=== PATIENT | male | born 1995 | race Caucasian/White ===

== ENCOUNTER 2017-04-18 21:54 | Emergency (ER) | payer BC ==
[2017-04-18] MEDS ORDERED: ONDANSETRON 4 MG/2 ML VIAL ONE (22:05)
[2017-04-18] MEDS ORDERED: ONDANSETRON 4 MG/2 ML VIAL IVP ONE (22:05)
[2017-04-18] MEDS ORDERED: NS 1,000 ML IV ONE ×4 (22:05→23:14)
--- NOTE | 2017-04-18 22:09 | EDPHY ---
H & P HPI/ROS: HPI CHIEF COMPLAINT: Seizure HISTORY OF PRESENT ILLNESS: This patient is a 27-year-old male, presents emergency room by EMS after he had a witnessed seizure by his friends at a local residence. Friends state that he had a seizure that lasted 1 minutes generalized tonic-clonic. He was postictal when EMS arrived alert or x1. He ambulated out to the ambulance. Where he then vomited 1 time. And then proceeded to have another seizure lasting 45 seconds. He was given 5 mg IM Versed. Placed on a non-rebreather. And brought to the emergency room. Upon arrival to the emergency room he is lethargic, he is noted to be tachycardic, sedated from IM Versed. At this time I do not appreciate any seizure activity. It is reported of limited review of systems and history. Additionally reported by his friends that he has a history of skin cancer. But no known seizure disorder or other medical history at this time. No reported drugs or alcohol. Upon arrival to the emergency room the patient is lethargic. On a non- rebreather noted to be tachycardic. He is unable to participate in exam. No trauma reported. History review of systems limited due to patient's mental state. Past Medical History: Unknown Past Surgical History: Unknown Social History: Unknown Family History: Unknown ROS REVIEW OF SYSTEMS: Limited due to patient's mental state. Exam Constitutional lethargic, triage nursing summary reviewed, vital signs reviewed tachycardic Eyes normal conjunctivae and sclera, EOMI. 4 mm equal minimally reactive light pupils. HENT normal inspection, atraumatic, moist mucus membranes, no epistaxis, neck supple/ no meningismus, no raccoon eyes. Respiratory clear to auscultation bilaterally, normal breath sounds, no respiratory distress, no wheezing. Cardiovascular tachycardic, regular rhythm, no murmur, no edema, distal pulses normal. Gastrointestinal soft, non-tender, no rebound, no guarding, normal bowel sounds, no distension, no pulsatile mass. Genitourinary no CVA tenderness. Musculoskeletal no midline vertebral tenderness, full range of motion, no calf swelling, no tenderness of extremities, no meningismus, good pulses, neurovascularly intact. Skin pink, warm, & dry, no rash, skin atraumatic. Neurologic large it, no seizure activity cut rigid. Psychiatric normal mood/affect. Heme/Lymph/Immune no lymphadenopathy. Differential Diagnosis: Includes but is not limited to in a particular order acute seizure, unresponsiveness, intracranial bleed, electrolyte disturbance, acute FL, sepsis Medical Decision Making: Plan for this patient he is currently unresponsive on a non-rebreather after seizure and receiving IM Versed. Proceed with CT scan head without contrast rule out intracranial bleed. IV establishment blood draw , full fusing machine tender. Re-evaluation: CT scan of the head without contrast seizure The results of the study are this shows a right frontal lobe possible mass 3.5 x 3 cm hyperdense in origin. Also right buddhist region 1 cm additionally there is intraventricular blood right side.. The study was read by Dr. Wilcox I viewed the images myself on the PACS system. 2227: Patient is back from CT. No change in his clinical state. Still stone lethargic GCS of 3. He will need to be intubated. Airway protection. 2227: Additionally at this time I did consult Neurosurgery to evaluate his CT scan. Spoke with Dr. Piper. 2238: This patient was unresponsive GCS of 3. Required emergent intubation by myself. Reason for intubation airway protection given he is unresponsive. No evidence of seizure activity. Intubation procedure 2247PM: Mom and dad have arrived. They report to me that he has stage III melanoma. They report that he has not had any spread that they know of. I have updated him of his condition. They understand he is on a breathing machine. Intubated. And has lesions on his brain. This patient is currently getting chemotherapy medication and is followed by an oncologist at [facility]. 2300: Dr. Tay Piper: At bedside seen evaluated the patient. 2300: Spoke with agrees to admit this patient. 2301: This time this patient is hemodynamically stable heart rate is currently 112, blood pressure 97/54. He is intubated. He is not on sedation at this time. No evidence seizure activity at this time. 2316: Parents requesting to be transferred to [facility]. Will set this up. ED x-ray chest one view: Shows good position of endotracheal tube. I do not appreciate any otherwise abnormal acute cardiopulmonary disease. Endotracheal tube in good position. Good aeration of both lungs. Intubation procedure: This patient was emergently intubated by myself. Under direct laryngoscopy 7.5 ET tube was placed. Patient was medicated with RSI medications which include pre medication with 100 mcg IV fentanyl, 20 mg IV etomidate, 100 mg of succinylcholine. 1 attempt was made at endotracheal intubation. His endotracheal tube was in good position. This was confirmed with chest x-ray, color change on. Humidified air. Bilateral breath sounds with auscultation. Critical Care: Total Critical Care Time Spent Managing this Patient:65Minutes. This time was spent Exclusively with this patient. This Care was exclusive of procedures. The Organ System/life at risk was respiratory failure This Patient was in Critical Condition because respiratory failure due to multiple seizures 2327: At this time family is requesting transfer [facility]. Will arrange this. Dr. Tay Piper seen evaluated the patient. Had a lengthy discussion with family. Currently this time patient hemodynamically stable sedated and intubated. No further seizure activity in fact he started moving. Removing the extremities and bucking the vent. 2340: Spoke with at [facility] Dr. Jiménez with Neurosurgery he has accepted the patient to the neuro ICU. The patient be flown there by helicopter. Reason for helicopter flight is the patient is intubated sedated with hypoxic respiratory failure in critical condition. At risk for having further seizures. Family is agreed for transfer. Mom and dad updated at bedside. 1238AM: Update from [facility]. They are cleaning his ICU room. Is not available at this time. The requesting we hold the patient here until the room is fully cleaned and then can transfer patient by helicopter. Source: EMS Constitutional: Initial Vital Signs Heart Rate 133 H 04/18/17 21:55 Respiratory Rate 34 H 04/18/17 21:55 Blood Pressure 155/110 H 04/18/17 21:55 O2 Sat (%) 96 04/18/17 21:55 O2 Delivery Mode Ventilator O2 (L/minute) 15 Allergies/Adverse Reactions: No Known Allergies Allergy (Unverified 04/18/17 23:09) Home Medications: Medication Instructions Recorded Atezolizumab 04/18/17 Cobimetinib Fumarate 04/18/17 Vemurafenib 04/18/17 Medical Decision Making - Diagnostics Imaging Results: Imaging Impressions Chest X-Ray 04/18/17 22:05 Impression: Clear lungs. Negative portable chest. Head CT 04/18/17 22:05 Impression: 1. Two sites of intraparenchymal hemorrhage versus partially calcified masses in the right frontal and right temporal lobes. 2. Small focus of intraventricular hemorrhage in the anterior right 3rd ventricle at the foramen Monro. 3. High hematocrit versus sagittal sinus thrombosis. Findings discussed with Emergency Department physician, Alejo Talavera M.D., on April 18, 2017 at 2230. Chest X-Ray 04/18/17 22:32 Impression: 1. New well-positioned ET tube. 2. Clear lungs. No aspiration. - Data Points Laboratory Results: Laboratory Results 04/18/17 22:00 04/18/17 22:00 04/18/17 04/18/17 04/18/17 22:42 22:35 22:00 WBC RBC Hgb Hct MCV MCH MCHC RDW Plt Count MPV Neut % (Auto) Lymph % (Auto) [place] % (Auto) Eos % (Auto) Baso % (Auto) Nucleat RBC Rel Count Absolute Neuts (auto) Absolute Lymphs (auto) Absolute Monos (auto) Absolute Eos (auto) Absolute Basos (auto) Absolute Nucleated RBC Immature Gran % Seg Neutrophils % Lymphocytes % Monocytes % Eosinophils % Immature Gran # Absolute Seg Neuts Absolute Lymphocytes Absolute Monocytes Absolute Eosinophils Atypical Lymphocytes Platelet Estimate Oval Macrocytes Smear Review By VBG Lactic Acid 20.0 mmol/L H mmol/L (0.7-2.1) Sodium 150 mEq/L H mEq/L (134-144) Potassium 3.5 mEq/L mEq/L (3.5-5.2) Chloride 101 mEq/L mEq/L (97-110) Carbon Dioxide < 5 mEq/l L* mEq/l (22-31) Anion Gap TNP BUN 10 mg/dL mg/dL (7-23) Creatinine 2.4 mg/dL H mg/dL (0.7-1.3) Estimated GFR 34 Glucose 171 mg/dL H mg/dL (70-100) Calcium 11.5 mg/dL H mg/dL (8.5-10.4) Phosphorus 10.6 mg/dL H mg/dL (2.5-4.5) Troponin I < 0.012 ng/mL ng/mL (0.000-0.034) Urine Opiates Screen NEGATIVE (NEGATIVE) Urine Barbiturates NEGATIVE (NEGATIVE) Phenytoin < 3.0 mcg/mL L mcg/mL (10.0-20.0) Valproic Acid < 10.0 mcg/mL L mcg/mL (50.0-150.0) Ur Phencyclidine Scrn NEGATIVE (NEGATIVE) Ur Amphetamine Screen NEGATIVE (NEGATIVE) U Benzodiazepines Scrn NEGATIVE (NEGATIVE) Urine Cocaine Screen NEGATIVE (NEGATIVE) U Marijuana (THC) Screen NON-NEGATIVE H (NEGATIVE) Ethyl Alcohol < 10 mg/dL mg/dL (0-10) 04/18/17 22:00 WBC 27.50 10^3/uL H 10^3/uL (3.80-9.50) RBC 5.10 10^6/uL 10^6/uL (4.40-6.38) Hgb 16.6 g/dL g/dL (13.7-17.5) Hct 54.5 % H % (40.0-51.0) MCV 106.9 fL H fL (81.5-99.8) MCH 32.5 pg pg (27.9-34.1) MCHC 30.5 g/dL L g/dL (32.4-36.7) RDW 13.0 % % (11.5-15.2) Plt Count 316 10^3/uL 10^3/uL (150-400) MPV 10.8 fL fL (8.7-11.7) Neut % (Auto) Not Reported Lymph % (Auto) Not Reported [place] % (Auto) Not Reported Eos % (Auto) Not Reported Baso % (Auto) Not Reported Nucleat RBC Rel Count 0.0 % % (0.0-0.2) Absolute Neuts (auto) Not Reported Absolute Lymphs (auto) Not Reported Absolute Monos (auto) Not Reported Absolute Eos (auto) Not Reported Absolute Basos (auto) Not Reported Absolute Nucleated RBC 0.00 10^3/uL 10^3/uL (0-0.01) Immature Gran % Not Reported Seg Neutrophils % 49 % % Lymphocytes % 41 % % Monocytes % 8 % % Eosinophils % 2 % % Immature Gran # Not Reported Absolute Seg Neuts 13.48 10^/uL H 10^/uL (1.70-6.50) Absolute Lymphocytes 11.28 10^3/uL H 10^3/uL (1.00-3.00) Absolute Monocytes 2.20 10^3/uL H 10^3/uL (0.30-0.80) Absolute Eosinophils 0.55 10^3/uL H 10^3/uL (0.03-0.40) Atypical Lymphocytes 1+ H Platelet Estimate ADEQUATE (ADEQ) Oval Macrocytes 1+ H Smear Review By Pending VBG Lactic Acid Sodium Potassium Chloride Carbon Dioxide Anion Gap BUN Creatinine Estimated GFR Glucose Calcium Phosphorus Troponin I Urine Opiates Screen Urine Barbiturates Phenytoin Valproic Acid Ur Phencyclidine Scrn Ur Amphetamine Screen U Benzodiazepines Scrn Urine Cocaine Screen U Marijuana (THC) Screen Ethyl Alcohol Medications Given: Fentanyl (Sublimaze) 50 mcg IVP ONCE ONE Stop: 04/18/17 23:56 Last Admin: 04/18/17 23:55 Dose: 50 mcg Midazolam HCl (Versed) 2.5 mg IVP ONCE ONE Stop: 04/18/17 23:56 Last Admin: 04/18/17 23:55 Dose: 2.5 mg Discontinued Medications Etomidate (Etomidate) 100 mg IVP EDNOW ONE Stop: 04/18/17 22:31 Last Admin: 04/18/17 22:34 Dose: 100 mg Fentanyl (Sublimaze) 100 mcg IVP EDNOW ONE Stop: 04/18/17 22:31 Last Admin: 04/18/17 22:34 Dose: 100 mcg Fentanyl (Sublimaze) 100 mcg IVP ONCE ONE Stop: 04/18/17 23:16 Last Admin: 04/18/17 23:20 Dose: 100 mcg Sodium Chloride (Ns) 1,000 mls @ 0 mls/hr IV ONCE ONE; Wide Open PRN Reason: Protocol Stop: 04/18/17 22:06 Last Admin: 04/18/17 22:08 Dose: 1,000 mls Levetiracetam 1,000 mg/ Sodium (Chloride) 110 mls @ 440 mls/hr IV ONCE ONE Stop: 04/18/17 22:35 Last Admin: 04/18/17 22:50 Dose: 110 mls Propofol (Diprivan 10 Mg/Ml (Premix)) 50 mls @ 0 mls/hr IV EDNOW ONE; As Directed PRN Reason: Protocol Stop: 04/18/17 22:39 Last Admin: 04/18/17 22:51 Dose: 50 mls Sodium Chloride (Ns) 1,000 mls @ 0 mls/hr IV ONCE ONE PRN Reason: Wide Open Stop: 04/18/17 22:11 Last Admin: 04/18/17 22:10 Dose: 1,000 mls Sodium Chloride (Ns) 1,000 mls @ 0 mls/hr IV ONCE ONE PRN Reason: Wide Open Stop: 04/18/17 22:28 Last Admin: 04/18/17 22:28 Dose: 1,000 mls Sodium Chloride (Ns) 1,000 mls @ 0 mls/hr IV ONCE ONE PRN Reason: Wide Open Stop: 04/18/17 23:15 Last Admin: 04/18/17 23:15 Dose: 1,000 mls Midazolam HCl (Versed) 2 mg IVP ONCE ONE Stop: 04/18/17 23:26 Last Admin: 04/18/17 23:25 Dose: 2 mg Ondansetron HCl (Zofran) 4 mg IVP EDNOW ONE Stop: 04/18/17 22:06 Last Admin: 04/18/17 22:08 Dose: 4 mg Propofol (Diprivan) 60 mg IVP EDNOW ONE Stop: 04/18/17 23:56 Last Admin: 04/18/17 23:55 Dose: 60 mg Succinylcholine Chloride (Quelicin) 100 mg IVP EDNOW ONE Stop: 04/18/17 22:31 Last Admin: 04/18/17 22:34 Dose: 100 mg Departure - Departure Disposition: [facility] Clinical Impression: Seizure, Brain tumor Respiratory failure Qualifiers: Chronicity: acute Respiratory failure complication: hypoxia Qualified Code(s): J96.01 - Acute respiratory failure with hypoxia Condition: Critical
[2017-04-18 22:12] LABS: ADD MORPH? NO; ADD SCAN? YES; ATYPICAL LYMPHOCYTE FLAG 20 (0-99); FRAGMENT RBC FLAG 0 (0-99); HEMATOCRIT 54.5 % (40.0-51.0); HEMOGLOBIN 16.6 g/dL (13.7-17.5); LEFT SHIFT FLG 10 (0-99); LIPEMIA HEMOLYSIS FLAG 80 (0-99); MEAN CELL HEMOGLOBIN 32.5 pg (27.9-34.1); MEAN CELL HEMOGLOBIN CONCENTR. 30.5 g/dL (32.4-36.7); MEAN CELL VOLUME 106.9 fL (81.5-99.8); MEAN PLATELET VOLUME 10.8 fL (8.7-11.7); PLATELET CLUMPS FLAG 0 (0-99); PLATELET COUNT 316 10^3/uL (150-400)
[2017-04-18] MEDS ORDERED: levETIRAcetam 1,000 MG in NS 100 ML IV ONE (22:21)
[2017-04-18 22:27] LABS: CALCIUM 11.5 mg/dL (8.5-10.4); CHLORIDE 101 mEq/L (97-110); CREATININE 2.4 mg/dL (0.7-1.3); ETHANOL SERUM < 10 mg/dL (0-10); GLOMERULAR FILTRATION RATE 34; GLUCOSE 171 mg/dL (70-100); POTASSIUM 3.5 mEq/L (3.5-5.2); SODIUM 150 mEq/L (134-144)
[2017-04-18] MEDS ORDERED: ETOMIDATE 20 MG/10 ML VIAL IVP ONE (22:30)
[2017-04-18] MEDS ORDERED: fentaNYL 100 MCG/2 ML INJ IVP ONE ×4 (22:30→23:55)
[2017-04-18] MEDS ORDERED: SUCCINYLCHOLINE CHLORIDE 200 MG/10 ML VIAL IVP ONE (22:30)
[2017-04-18] MEDS ORDERED: PROPOFOL/EMULSION 500 MG/50 ML BOTTLE IV ONE (22:33)
[2017-04-18 22:35] LABS: TROPONIN I < 0.012 ng/mL (0.000-0.034)
[2017-04-18] MEDS ORDERED: PROPOFOL/EMULSION 1,000 MG/100 ML BOTTLE IV ONE (22:35)
[2017-04-18] MEDS ORDERED: PROPOFOL/EMULSION 50 ML IV ONE (22:38)
[2017-04-18 22:42] LABS: CARBON DIOXIDE < 5 mEq/l (22-31)
[2017-04-18 22:48] LABS: ADD DIFF? YES; SCAN POSITIVE
[2017-04-18 22:51] LABS: MACROCYTES 1+; PLATELET ESTIMATE ADEQUATE (ADEQ)
[2017-04-18] MEDS ORDERED: MIDAZOLAM 2 MG/2 ML VIAL IVP ONE ×2 (23:25→23:55)
[2017-04-18 23:36] VITALS: TEMP 99.1
[2017-04-18 23:55] LABS: BASE EXCESS -8.3 mEq/L (-2.5-2.5); BICARBONATE 18 mEq/L (22-26); MEASURED OXYGEN SATURATION 98 % (92-95); PCO2 39 mmHg (34-38); PO2 150 mmHg (65-75); TCO2 19 mEq/L (23-27)
[2017-04-18] MEDS ORDERED: PROPOFOL 200 MG/20 ML VIAL IVP ONE (23:55)
[2017-04-18 23:56] LABS: SIMV YES
[2017-04-18 23:57] LABS: PATIENT RATE 14; PIP 14; PRESSURE SUPPORT 7
[2017-04-19 00:01] VITALS: PULSE 98; RESP 14
[2017-04-19 00:47] VITALS: BP 102/61; O2SAT 95
[2017-04-19] MEDS ORDERED: PROPOFOL/EMULSION 1,000 MG/100 ML BOTTLE IV ONE (00:56)
[2017-04-19] MEDS ORDERED: SUCCINYLCHOLINE CHLORIDE*ANESTHESIA ONLY*200 MG/10 ML SYR IVP ONE (01:17)
[2017-04-19] MEDS ORDERED: ETOMIDATE 40 MG/20 ML INJ ONE (01:17)
--- NOTE | 2017-04-19 05:16 | GCON ---
[f rep st] CONSULTATION NEUROSURGERY CONSULT NOTE DATE OF CONSULTATION: 04/18/2017 The patient was seen and evaluated at the [facility] Emergency Department at approxim ately 11 p.m. on 04/18/2017. HISTORY OF PRESENT ILLNESS: The patient is a 22-year-old man, who originally presented to the emerge ncy room as an unidentified male patient. He had apparently had a witnessed seizure by some friends at a local residence. He was postictal when EMS had arrived at the residence, but apparently was amol ented x1, and spoke to the EMS. He was able to ambulate at that time, and was transported by ambulan ce having an episode of vomiting and another seizure while in the ambulance. He was given 5 mg of in tramuscular Versed and at this point, he became relatively lethargic. Upon arrival to the emergency room, he was lethargic with essentially GCS of 3, and reactive pupils. A CT of the head was obtained , which revealed a right frontal hyperdense mass measuring about 3.5 x 3.1 cm and a similar hyperdens ity measuring roughly 1 cm in the right temporal lobe. There is really not a lot of surrounding mass effect or vasogenic edema. There is no significant mass effect or midline shift. There is a small amount of hyperdensity in the area of the foramen of Monro on the right lateral ventricle, but there is otherwise no clear blood in the ventricles. This may represent artifact or possibly tumor. After my arrival here, he had been intubated. His parents had arrived and the rest of the history I was a ble to obtain through them. He does have a history of stage III melanoma, which originally originate d behind the right ear. He has been on some experimental therapy through the center and up until now has had no sign of any residual disease. He did have CTs of the head, chest, abdomen, and pelvi s last week, but they did not know the results of these scans yet. After I had spoken with his paren ts, he began to come around, was reaching for the tube with good strength, and then was going to be s edated for further transport. He had received 1 g of Keppra in the emergency department. REVIEW OF SYSTEMS: A 10-point review of systems could not be obtained due to the patient's intubated and sedated status. PAST MEDICAL HISTORY: Stage III melanoma on experimental chemotherapy through the [facility]. PAST SURGICAL HISTORY: Melanoma removal from behind the right ear. SOCIAL HISTORY: Patient lives here in [place]. He is now accompanied by his parents. There is no k nown history of alcohol or other drug use. FAMILY HISTORY: Negative for brain tumors or brain bleeding. ALLERGIES: No known drug allergies. MEDICATIONS: The patient was takin. Atezolizumab. 2. Cobimetinib. 3. Vemurafenib. These are the experimental medications the patient has been taking for melanoma. PHYSICAL EXAM: When I first arrived, the patient had pupils at about 5 mm, which were briskly reacti ve. He did not have any other exam at that time because he had been paralyzed for intubation. Later , the patient opened his eyes spontaneously. He was coughing on the tube. He was reaching up vigoro usly with both upper extremities for the tube with good 5/5 strength. He was also moving the lower e xtremities with 5/5 strength. He was not following commands. His pupils remained at about 5 mm and briskly reactive. Corneals were positive. Otherwise, he did not have any obvious focal neurologic d eficits. His sensation seemed to be intact to pain with withdrawal, but otherwise was difficult to a ssess. LABORATORY REVIEW: The white count is 27.5, hemoglobin is 16.6, hematocrit is 54.5, platelet count i s 316,000. His sodium is 150, potassium 3.5, BUN is 10, creatinine 2.4, glucose 171, troponins are n egative. His drug screen is negative. Blood alcohol is negative. Both phenytoin and valproic acid were nondetectable, but it is not clear to me that he is actually taking these medications. IMAGING REVIEW: See HPI. ASSESSMENT AND PLAN: The patient is a 22-year-old man, who originally presented as unidentified, but now his parents have arrived, after having a seizure. He has had now 2 seizures this evening and linder s been loaded with a gram of Keppra. He is now starting to wake up, but he has been intubated for de saturation after likely an aspiration event. He was found to have a larger, roughly 3 cm right front al mass, and a smaller 1 cm right temporal mass with a history of metastatic melanoma. This is almos t certainly what this represents. I spoke to his parents and showed them the imaging. I do not thin k there is any surgical emergency at this moment, given that he does not have a lot of mass effect or surrounding vasogenic edema. Given that he is in experimental therapy down at the [facility], his parents did request that he be transferred down there for further care, which I think is r easonable. The ER will work to facilitate the transfer and I stressed to them that at any point if w dragan could help from a neurosurgical standpoint, we would be happy to do so, but they would like to go d own there to be closer to the patient's oncologist that know him well. For now, I think keeping him on Keppra is quite reasonable. He does have some other electrolyte abnormalities, which may be secon srinivas to the seizures. He probably will require some workup of his renal failure, unless this is a kn own side effect of his chemotherapy that he has been on. I explained to them that likely his right f rontal lesion would require surgery, and we would be happy to do this here if they preferred, but the y would also be quite capable of taking care of this at the center. The remainder of his tumor julio zabala could be treated with radiation, if they look anatomically favorable for this on MRI scans. I answered all their questions to the best of my ability, and they were happy with our interaction. Thanks for the kind consultation. /[id number]/[id number]
== END 2017-04-19 01:00 | disposition short-term general hospital (02) ==
LOC: EDBD 21:54 → UNDOADMIN 22:56
PROC: 0BH17EZ Insertion of Endotracheal Airway into Trachea, Via Natural or Artificial Opening (ICD-10-PCS; principal; 2017-04-18)
DX: R56.9 Unspecified convulsions (principal); J96.01 Acute respiratory failure with hypoxia; C71.9 Malignant neoplasm of brain, unspecified; R11.10 Vomiting, unspecified
CPT/HCPCS: 80305; 82947-QW; 96374; G0480; J0330; J1953; J2250; J2405; J2704; J3010